=== PATIENT | male | born 1960 | race Caucasian/White ===

== ENCOUNTER 2024-04-08 04:25 | Day surgery (SDC) | payer OTHER ==
[2024-04-02 08:26] VITALS: BMI 26.4
[2024-04-08 15:15] VITALS: BP 104/60; PULSE 77; TEMP 98
[2024-04-08 15:18] VITALS: RESP 18
== END 2024-04-08 11:35 | disposition home or self-care (01) ==
LOC: JASU-ENDO 04:25
PROVIDERS: ATTEND Internal Medicine Gastroenterology
PROC: 0DBH8ZX Excision of Cecum, Via Natural or Artificial Opening Endoscopic, Diagnostic (ICD-10-PCS; principal; 2024-04-08 10:15)
DX: Z12.11 Encounter for screening for malignant neoplasm of colon (principal); D12.0 Benign neoplasm of cecum; K64.8 Other hemorrhoids
CPT/HCPCS: 88305-TC